=== PATIENT | female | born 1995 | race Caucasian/White ===

== ENCOUNTER 2016-12-11 15:55 | Emergency (ER) | payer OTHER ==
[~2016-12-11] VITALS: Ht 172.7 cm; Wt 121.0 kg
[~2016-12-11 15:55] MED LIST: CIPRO500 MG PO; PEPCID20 MG PO; TORADOL10 MG PO; ZOFRAN4 MG PO
[2016-12-11 16:55] LABS: ADD MIUA? YES; BILIRUBIN NEGATIVE; BLOOD MODERATE; COLOR YELLOW ((YELLOW)); GLUCOSE (STRIP) NEGATIVE; KETONES NEGATIVE; LEUKOCYTES LARGE; NITRITE POSITIVE; PROTEIN (STRIP) 100; SPECIFIC GRAVITY 1.015 (1.000-1.030); UROBILINOGEN 0.2 MG/DL (0.2-1.0)
[2016-12-11 17:15] LABS: RED BLOOD CELLS 20-30 /HPF (0-5); WHITE BLOOD CELLS TNTC /HPF (0-5)
[2016-12-11 17:16] LABS: BACTERIA 2+ /HPF; CASTS NONE SEEN /LPF; CRYSTALS NONE SEEN; EPITHELIAL CELLS RARE /HPF; MUCUS NONE SEEN /LPF; UCUL ADDED? YES
[2016-12-11 17:23] LABS: EOSINOPHIL (%) 0.6 % (0-5); EOSINOPHIL COUNT 0.1 K/uL (0-0.3); IMMATURE GRANULOCYTE (%) 0.6 % (0.0-0.7); IMMATURE GRANULOCYTE COUNT 0.1 K/uL; INSTRUMENT ABS NEUTROPHIL CT 8.4 K/uL; LYMPHOCYTE COUNT 3.2 K/uL (1.0-2.8); MCH 28.8 PG (29.0-34.0); MCHC 34.2 G/DL (30.0-36.0); MCV 84.3 FL (83-99); MEAN PLAT.VOLUME 9.9 uM^3 (9.5-12.4); MONOCYTE COUNT 0.6 K/uL (0-0.8); NEUTROPHIL (%) 67.9 % (45-76); NEUTROPHIL COUNT 8.4 K/uL (1.8-6.4); PLATELET COUNT 265 K/uL (156-360); RBC DIS.WIDTH-CV 12.9 % (11.8-14.6); RBC DIS.WIDTH-SD 39.5 % (39-53); WHITE BLOOD COUNT 12.4 K/uL (4.1-10.2)
[2016-12-11 17:32] LABS: CHLORIDE 106 mEq/L (99-109); POTASSIUM 3.7 mEq/L (3.7-5.4); SODIUM 141 mEq/L (136-147)
[2016-12-11 17:34] LABS: GLUCOSE 97 mg/dL (70-99)
[2016-12-11 17:35] LABS: ANION GAP 9 MEQ/L (2-14)
[2016-12-11 17:38] LABS: GFR ESTIMATE (CALCULATED) > 59 mL/min/
[2016-12-11 17:39] LABS: UREA NITROGEN (BUN) 10 mg/dL (9-23)
[2016-12-11 17:46] LABS: QUANTITATIVE HCG < 4.0 MIU/ML
[2016-12-11] MEDS ORDERED: CIPRO500 MG PO (18:37)
[2016-12-11 19:16] VITALS: BP 135/89
== END 2016-12-11 19:18 | disposition home or self-care (01) ==
LOC: EME 15:55
PROVIDERS: Emergency Medicine
DX: N39.0 Urinary tract infection, site not specified (principal); N20.0 Calculus of kidney; Z87.891 Personal history of nicotine dependence; Z88.0 Allergy status to penicillin
CPT/HCPCS: 74176; 80048; 81003; 84702; 85025; 87077; 87086; 87186; 99281; 99283

== ENCOUNTER 2016-12-14 05:58 | Inpatient (IN) | payer OTHER ==
[~2016-12-14] VITALS: Ht 175.3 cm; Wt 119.0 kg
[2016-12-14 06:29] LABS: HEMATOCRIT 41.9 % (36.0-46.0); MCH 28.9 PG (29.0-34.0); MCHC 34.1 G/DL (30.0-36.0); MCV 84.8 FL (83-99); MEAN PLAT.VOLUME 9.8 uM^3 (9.5-12.4); PLATELET COUNT 250 K/uL (156-360); RBC DIS.WIDTH-CV 12.7 % (11.8-14.6); RBC DIS.WIDTH-SD 39.2 % (39-53); RED BLOOD COUNT 4.94 M/uL (3.80-5.20); WHITE BLOOD COUNT 11.7 K/uL (4.1-10.2)
[2016-12-14 06:33] LABS: CHLORIDE 107 mEq/L (99-109); POTASSIUM 3.8 mEq/L (3.7-5.4); SODIUM 140 mEq/L (136-147)
[2016-12-14 06:35] LABS: GLUCOSE 119 mg/dL (70-99)
[2016-12-14 06:36] LABS: ANION GAP 8 MEQ/L (2-14)
[2016-12-14 06:37] LABS: TOTAL BILIRUBIN 0.7 mg/dL (0.0-1.0)
[2016-12-14 06:38] LABS: ALKALINE PHOSPHATASE 85 IU/L (3-129)
[2016-12-14 06:39] LABS: GFR ESTIMATE (CALCULATED) > 59 mL/min/
[2016-12-14 06:40] LABS: UREA NITROGEN (BUN) 10 mg/dL (9-23)
[2016-12-14 06:47] LABS: QUANTITATIVE HCG < 4.0 MIU/ML
[2016-12-14 07:13] LABS: ADD MIUA? YES; BILIRUBIN NEGATIVE; BLOOD SMALL; COLOR YELLOW ((YELLOW)); GLUCOSE (STRIP) NEGATIVE; KETONES NEGATIVE; LEUKOCYTES MODERATE; NITRITE NEGATIVE; PROTEIN (STRIP) 30; SPECIFIC GRAVITY 1.013 (1.000-1.030); UROBILINOGEN 0.2 MG/DL (0.2-1.0)
[2016-12-14 07:42] LABS: BACTERIA 1+ /HPF; EPITHELIAL CELLS RARE /HPF; MUCUS NONE SEEN /LPF; RED BLOOD CELLS 0-5 /HPF (0-5); UCUL ADDED? NO; WHITE BLOOD CELLS 40-50 /HPF (0-5)
[2016-12-14] MEDS ORDERED: JUNEL FE 1/21 TABLET PO (10:35)
[2016-12-14] MEDS ORDERED: SERTRALINE HCL50 MG PO (10:36)
[2016-12-14 14:16] VITALS: BP 129/106
[2016-12-14 17:51] VITALS: BP 157/87
[2016-12-15 00:05] VITALS: BP 135/90
[2016-12-15 05:31] LABS: HEMATOCRIT 39.9 % (36.0-46.0); MCH 29.2 PG (29.0-34.0); MCHC 34.1 G/DL (30.0-36.0); MCV 85.8 FL (83-99); PLATELET COUNT 218 K/uL (156-360); RBC DIS.WIDTH-CV 12.7 % (11.8-14.6); RBC DIS.WIDTH-SD 39.6 % (39-53); RED BLOOD COUNT 4.65 M/uL (3.80-5.20)
[2016-12-15 08:33] VITALS: BP 138/64
[2016-12-15 11:33] VITALS: BP 132/78
[2016-12-15 18:39] VITALS: BP 136/79
[2016-12-15 19:51] VITALS: BP 142/81
[2016-12-15 23:44] VITALS: BP 146/88
[2016-12-16 09:34] LABS: HEMATOCRIT 39.3 % (36.0-46.0); MCHC 34.4 G/DL (30.0-36.0); MCV 84.3 FL (83-99); MEAN PLAT.VOLUME 9.9 uM^3 (9.5-12.4); PLATELET COUNT 240 K/uL (156-360); RBC DIS.WIDTH-CV 12.4 % (11.8-14.6); RBC DIS.WIDTH-SD 38.1 % (39-53); RED BLOOD COUNT 4.66 M/uL (3.80-5.20); WHITE BLOOD COUNT 9.1 K/uL (4.1-10.2)
[2016-12-16 09:43] VITALS: BP 123/69
[2016-12-16 09:54] LABS: ANION GAP 7 MEQ/L (2-14); CHLORIDE 105 MEQ/L (99-109); GFR ESTIMATE (CALCULATED) > 59 mL/min/; GLUCOSE 100 mg/dL (70-99); POTASSIUM 3.6 MEQ/L (3.7-5.4); SAMPLE HEMOLYSIS CHECK 0; SAMPLE ICTERIC CHECK 0; SAMPLE LIPEMIA CHECK 0; SODIUM 137 MEQ/L (136-147); UREA NITROGEN (BUN) 8 mg/dL (9-23)
[2016-12-16 12:57] VITALS: BP 132/74
[2016-12-16 15:00] VITALS: BP 129/79
[2016-12-16 19:01] VITALS: BP 127/88
[2016-12-17 07:30] VITALS: BP 128/74
[2016-12-17] MEDS ORDERED: CEFTIN500 MG PO (08:10)
== END 2016-12-17 11:34 | disposition home or self-care (01) | DRG 690 ==
LOC: EME 05:58 → EDOF 10:17 → 5SOUTH 10:17 → EDOF 10:46 → 5SOUTH 17:06
PROVIDERS: Internal Medicine; Nurse Practitioner Adult Health
DX: N10 Acute pyelonephritis (principal); B96.20 Unspecified Escherichia coli [E. coli] as the cause of diseases classified elsewhere; Z16.23 Resistance to quinolones and fluoroquinolones; N20.0 Calculus of kidney; R00.0 Tachycardia, unspecified; R01.1 Cardiac murmur, unspecified; E66.9 Obesity, unspecified; Z68.38 Body mass index [BMI] 38.0-38.9, adult; Z87.442 Personal history of urinary calculi; Z87.891 Personal history of nicotine dependence
CPT/HCPCS: 74176; 80048; 80053; 81003; 83605; 84702; 85027; 87040; 99281; 99285; J0696; J2405; J3010; J7030; J7050

== ENCOUNTER 2017-03-27 00:34 | Emergency (ER) | payer OTHER ==
[~2017-03-27] VITALS: Ht 175.3 cm; Wt 120.6 kg
[~2017-03-27 00:34] MED LIST changes: +CEFTIN500 MG PO; +JUNEL FE 1/21 TABLET PO; +SERTRALINE HCL50 MG PO
[2017-03-27 01:00] LABS: HEMATOCRIT 42.1 % (36.0-46.0); MCH 29.3 PG (29.0-34.0); MCHC 34.7 G/DL (30.0-36.0); MCV 84.5 FL (83-99); MEAN PLAT.VOLUME 9.7 uM^3 (9.5-12.4); PLATELET COUNT 222 K/uL (156-360); RBC DIS.WIDTH-SD 39.6 % (39-53); RED BLOOD COUNT 4.98 M/uL (3.80-5.20); WHITE BLOOD COUNT 11.8 K/uL (4.1-10.2)
[2017-03-27 01:05] LABS: ADD MIUA? YES; BILIRUBIN NEGATIVE; BLOOD SMALL; COLOR YELLOW ((YELLOW)); GLUCOSE (STRIP) NEGATIVE; KETONES NEGATIVE; LEUKOCYTES LARGE; NITRITE POSITIVE; PROTEIN (STRIP) 30; SPECIFIC GRAVITY 1.015 (1.000-1.030); UROBILINOGEN 0.2 MG/DL (0.2-1.0)
[2017-03-27 01:11] LABS: CHLORIDE 105 mEq/L (99-109); POTASSIUM 3.5 mEq/L (3.7-5.4); SODIUM 141 mEq/L (136-147)
[2017-03-27 01:14] LABS: GLUCOSE 102 mg/dL (70-99)
[2017-03-27 01:15] LABS: ANION GAP 12 MEQ/L (2-14); TOTAL BILIRUBIN 0.6 mg/dL (0.0-1.0)
[2017-03-27 01:17] LABS: ALKALINE PHOSPHATASE 78 IU/L (3-129); GFR ESTIMATE (CALCULATED) > 59 mL/min/
[2017-03-27 01:18] LABS: UREA NITROGEN (BUN) 10 mg/dL (9-23)
[2017-03-27 01:28] LABS: QUANTITATIVE HCG < 4.0 MIU/ML
[2017-03-27 01:35] LABS: WHITE BLOOD CELLS TNTC /HPF (0-5)
[2017-03-27 01:39] LABS: EPITHELIAL CELLS 1+ /HPF
[2017-03-27 01:40] LABS: BACTERIA 3+ /HPF; CASTS NONE SEEN /LPF; CRYSTALS NONE SEEN; MUCUS RARE /LPF; UCUL ADDED? YES
[2017-03-27] MEDS ORDERED: KEFLEX500 MG PO (01:40)
[2017-03-27 02:15] VITALS: BP 138/92
[2017-03-27] MEDS ORDERED: AMITRIPTYLINE H10 MG PO (19:50)
[2017-03-27] MEDS ORDERED: MACROBID100 MG PO (19:50)
== END 2017-03-27 02:16 | disposition home or self-care (01) ==
LOC: EME 00:34 → EXP 00:34
DX: N39.0 Urinary tract infection, site not specified (principal); Z87.442 Personal history of urinary calculi; Z87.891 Personal history of nicotine dependence; Z88.1 Allergy status to other antibiotic agents
CPT/HCPCS: 80053; 81003; 84702; 85027; 87077; 87086; 87186; 99281; 99285; J0696; J1885; J7030; J7050

== ENCOUNTER 2017-03-27 18:00 | Inpatient (IN) | payer OTHER ==
[~2017-03-27] VITALS: Ht 175.3 cm; Wt 116.7 kg
[~2017-03-27 18:00] MED LIST changes: +KEFLEX500 MG PO
[2017-03-27 19:12] LABS: EOSINOPHIL (%) 0 % (0-5); HEMATOCRIT 42.9 % (36.0-46.0); IMMATURE GRANULOCYTE (%) 0.5 % (0.0-0.7); IMMATURE GRANULOCYTE COUNT 0.1 K/uL; INSTRUMENT ABS NEUTROPHIL CT 13.6 K/uL; LYMPHOCYTE COUNT 2.9 K/uL (1.0-2.8); MCH 29.2 PG (29.0-34.0); MCHC 34.7 G/DL (30.0-36.0); MCV 84.1 FL (83-99); MONOCYTE (%) 7.5 % (3-12); MONOCYTE COUNT 1.4 K/uL (0-0.8); NEUTROPHIL (%) 75.8 % (45-76); NEUTROPHIL COUNT 13.6 K/uL (1.8-6.4); PLATELET COUNT 203 K/uL (156-360); RBC DIS.WIDTH-CV 12.8 % (11.8-14.6); RBC DIS.WIDTH-SD 38.8 % (39-53); WHITE BLOOD COUNT 17.9 K/uL (4.1-10.2)
[2017-03-27 19:17] LABS: CHLORIDE 106 mEq/L (99-109); POTASSIUM 3.2 mEq/L (3.7-5.4); SODIUM 137 mEq/L (136-147)
[2017-03-27 19:19] LABS: GLUCOSE 111 mg/dL (70-99)
[2017-03-27 19:20] LABS: ANION GAP 13 MEQ/L (2-14)
[2017-03-27 19:23] LABS: ALKALINE PHOSPHATASE 83 IU/L (3-129); GFR ESTIMATE (CALCULATED) > 59 mL/min/
[2017-03-27 19:24] LABS: UREA NITROGEN (BUN) 8 mg/dL (9-23)
[2017-03-27 19:28] LABS: TOTAL BILIRUBIN 0.9 mg/dL (0.0-1.0)
[2017-03-27 19:31] LABS: QUANTITATIVE HCG < 4.0 MIU/ML
[2017-03-27] MEDS ORDERED: MACROBID100 MG PO (19:50)
[2017-03-27] MEDS ORDERED: AMITRIPTYLINE H10 MG PO (19:50)
[2017-03-27 22:50] VITALS: BP 144/89
[2017-03-28 06:22] LABS: EOSINOPHIL (%) 0.2 % (0-5); HEMATOCRIT 40.9 % (36.0-46.0); IMMATURE GRANULOCYTE (%) 0.4 % (0.0-0.7); IMMATURE GRANULOCYTE COUNT 0.1 K/uL; INSTRUMENT ABS NEUTROPHIL CT 8.8 K/uL; LYMPHOCYTE COUNT 2.5 K/uL (1.0-2.8); MCH 29.9 PG (29.0-34.0); MCHC 34.5 G/DL (30.0-36.0); MCV 86.7 FL (83-99); MONOCYTE (%) 9.5 % (3-12); MONOCYTE COUNT 1.2 K/uL (0-0.8); NEUTROPHIL COUNT 8.8 K/uL (1.8-6.4); PLATELET COUNT 176 K/uL (156-360); RBC DIS.WIDTH-CV 13.1 % (11.8-14.6); RBC DIS.WIDTH-SD 40.8 % (39-53); RED BLOOD COUNT 4.72 M/uL (3.80-5.20); WHITE BLOOD COUNT 12.6 K/uL (4.1-10.2)
[2017-03-28 06:44] LABS: ANION GAP 9 MEQ/L (2-14); CHLORIDE 107 MEQ/L (99-109); GFR ESTIMATE (CALCULATED) > 59 mL/min/; GLUCOSE 95 mg/dL (70-99); POTASSIUM 3.5 MEQ/L (3.7-5.4); SAMPLE HEMOLYSIS CHECK 0; SAMPLE ICTERIC CHECK 0; SAMPLE LIPEMIA CHECK 0; SODIUM 138 MEQ/L (136-147); UREA NITROGEN (BUN) 9 mg/dL (9-23)
[2017-03-28 08:01] VITALS: BP 150/87
[2017-03-28 08:51] LABS: MAGNESIUM 1.7 mg/dl (1.3-2.7)
[2017-03-28 15:59] VITALS: BP 141/80
[2017-03-28 23:19] VITALS: BP 149/81
[2017-03-29 08:40] VITALS: BP 147/84
[2017-03-29 09:35] LABS: HEMATOCRIT 39.6 % (36.0-46.0); MCH 28.8 PG (29.0-34.0); MCHC 33.8 G/DL (30.0-36.0); MCV 85.2 FL (83-99); MEAN PLAT.VOLUME 10.1 uM^3 (9.5-12.4); PLATELET COUNT 185 K/uL (156-360); RBC DIS.WIDTH-CV 12.8 % (11.8-14.6); RBC DIS.WIDTH-SD 39.3 % (39-53); RED BLOOD COUNT 4.65 M/uL (3.80-5.20); WHITE BLOOD COUNT 8.6 K/uL (4.1-10.2)
[2017-03-29 10:02] LABS: ANION GAP 8 MEQ/L (2-14); CHLORIDE 104 MEQ/L (99-109); GFR ESTIMATE (CALCULATED) > 59 mL/min/; GLUCOSE 91 mg/dL (70-99); POTASSIUM 3.7 MEQ/L (3.7-5.4); SAMPLE HEMOLYSIS CHECK 0; SAMPLE ICTERIC CHECK 0; SAMPLE LIPEMIA CHECK 0; SODIUM 136 MEQ/L (136-147); UREA NITROGEN (BUN) 5 mg/dL (9-23)
[2017-03-29] MEDS ORDERED: BACTRIM,SEPT1 TABLE1 PO ×2 (12:12→12:15)
== END 2017-03-29 13:39 | disposition home or self-care (01) | DRG 872 ==
LOC: EME 18:00 → 5SOUTH 21:11 → EDOF 21:11 → ENRESERV 21:17 → 5SOUTH 22:29
PROVIDERS: Hospitalist; Physician Assistant Medical
DX: A41.9 Sepsis, unspecified organism (principal); N10 Acute pyelonephritis; N20.0 Calculus of kidney; R03.0 Elevated blood-pressure reading, without diagnosis of hypertension; E66.9 Obesity, unspecified; Z23 Encounter for immunization; Z87.891 Personal history of nicotine dependence; Z68.37 Body mass index [BMI] 37.0-37.9, adult; Z88.1 Allergy status to other antibiotic agents; Z87.440 Personal history of urinary (tract) infections
CPT/HCPCS: 74176; 80048; 80053; 81003; 83605; 83735; 84702; 85025; 85027; 87040; 90686; 99281; 99285; J0696; J1650; J1885; J2405; J7030; J7050

== ENCOUNTER 2017-06-05 05:13 | Emergency (ER) | payer OTHER ==
[~2017-06-05] VITALS: Ht 175.3 cm; Wt 119.7 kg
[~2017-06-05 05:13] MED LIST changes: +AMITRIPTYLINE H10 MG PO; +BACTRIM,SEPT1 TABLE1 PO; +MACROBID100 MG PO
[2017-06-05 05:34] LABS: APPEARANCE CLEAR ((CLEAR)); BILIRUBIN NEGATIVE; BLOOD NEGATIVE; COLOR YELLOW ((YELLOW)); GLUCOSE (STRIP) NEGATIVE; KETONES NEGATIVE; LEUKOCYTES NEGATIVE; NITRITE NEGATIVE; PROTEIN (STRIP) NEGATIVE; SPECIFIC GRAVITY 1.015 (1.000-1.030); UCUL ADDED? NO; UROBILINOGEN 0.2 MG/DL (0.2-1.0)
[2017-06-05 06:25] LABS: BASOPHIL (%) 0.4 % (0-1); EOSINOPHIL (%) 1.1 % (0-5); EOSINOPHIL COUNT 0.1 K/uL (0-0.3); HEMATOCRIT 41.5 % (36.0-46.0); HEMOGLOBIN 14.5 G/DL (11.9-15.5); IMMATURE GRANULOCYTE (%) 0.5 % (0.0-0.7); LYMPHOCYTE COUNT 2.9 K/uL (1.0-2.8); MCH 29.2 PG (29.0-34.0); MCHC 34.9 G/DL (30.0-36.0); MCV 83.7 FL (83-99); MONOCYTE (%) 4.9 % (3-12); MONOCYTE COUNT 0.4 K/uL (0-0.8); NEUTROPHIL (%) 58.1 % (45-76); NEUTROPHIL COUNT 4.9 K/uL (1.8-6.4); PLATELET COUNT 251 K/uL (156-360); RBC DIS.WIDTH-CV 12.9 % (11.8-14.6); RBC DIS.WIDTH-SD 38.6 % (39-53); RED BLOOD COUNT 4.96 M/uL (3.80-5.20); WHITE BLOOD COUNT 8.4 K/uL (4.1-10.2)
[2017-06-05 06:34] LABS: ALBUMIN 3.8 g/dL (3.2-4.8); CHLORIDE 107 mEq/L (99-109); POTASSIUM 3.7 mEq/L (3.7-5.4); SODIUM 139 mEq/L (136-147)
[2017-06-05 06:36] LABS: GLUCOSE 104 mg/dL (70-99); TOTAL PROTEIN 6.5 g/dL (6.4-8.3)
[2017-06-05 06:38] LABS: TOTAL BILIRUBIN 0.4 mg/dL (0.0-1.0)
[2017-06-05 06:40] LABS: ALKALINE PHOSPHATASE 81 IU/L (3-129); CREATININE 0.7 mg/dL (0.6-1.3); GFR ESTIMATE (CALCULATED) > 59 mL/min/
[2017-06-05 06:41] LABS: UREA NITROGEN (BUN) 10 mg/dL (9-23)
[2017-06-05 06:42] LABS: AST (GOT) 28 IU/L (2-34)
[2017-06-05 06:43] LABS: ALT (GPT) 36 IU/L (3-49); LIPASE 13 U/L (1.0-51.0)
[2017-06-05 06:49] LABS: QUANTITATIVE HCG < 4.0 MIU/ML
[2017-06-05 09:27] VITALS: BP 150/96
== END 2017-06-05 09:29 | disposition home or self-care (01) ==
LOC: EME 05:13
PROVIDERS: Emergency Medicine
DX: N83.202 Unspecified ovarian cyst, left side (principal); Z87.442 Personal history of urinary calculi; Z87.891 Personal history of nicotine dependence; Z88.0 Allergy status to penicillin; F41.9 Anxiety disorder, unspecified
CPT/HCPCS: 76770; 80053; 81003; 83690; 84702; 85025; 87086; 99281; 99283